=== PATIENT | male | born 1950 ===

== ENCOUNTER 2025-03-06 10:38 | Day surgery (SDC) | payer OTHER ==
[2025-03-02 09:51] VITALS: BP 126/71
[2025-03-02 10:29] LABS: BASO % 0.5 % (0.1-1.2); EOS # 0.06 (0.04-0.54); HEMATOCRIT 44.8 % (40.1-51.0); HEMOGLOBIN 14.3 g/dL (13.7-17.5); LYMPH # 1.38 (1.18-3.74); LYMPH % 23.7 % (19.3-53.1); MEAN CORPUSCULAR HEMOGLOBIN 27.9 pg (25.6-32.2); MONO # 0.45 (0.24-0.82); MONO % 7.7 % (4.7-12.5); NEUT # 3.89 (1.56-6.13); NEUT % 66.9 % (34.0-71.1); PLATELET COUNT 163 K/uL (163-369); RED BLOOD COUNT 5.13 M/uL (4.63-6.08); RED CELL DISTRIBUTION WIDTH 14.5 % (11.6-14.4)
[2025-03-02 10:48] LABS: INR 1.09; PARTIAL THROMBOPLASTIN TIME 25.6 SECONDS (22.0-34.0); PROTHROMBIN TIME 11.8 SECONDS (9.0-11.5)
[~2025-03-06] VITALS: Ht 167.6 cm; Wt 70.3 kg
[~2025-03-06 10:38] MED LIST: DUTASTERIDE-TA1 EACH PO; EZALLOR SPRINKL20 MG PO; FARXIGA10 MG PO; FOSINOPRIL-HCT1 EACH; XARELTO10 MG PO
[2025-03-06] MEDS ORDERED: DEXAMETHASONE SODIUM PHOSPHATE 4 MG/ML VIAL ONE (13:17)
== END 2025-03-06 16:55 | disposition home or self-care (01) ==
LOC: SURH 10:38 → CIR.AMB 10:38 → O/R 10:38 → SURH 14:00 → O/R 16:55 → CIR.AMB 16:55
PROVIDERS: ATTEND Surgery
DX: C73 Malignant neoplasm of thyroid gland (principal); Z53.09 Procedure and treatment not carried out because of other contraindication

== ENCOUNTER 2025-03-19 05:29 | Inpatient (IN) | payer OTHER ==
[~2025-03-19] VITALS: Ht 165.1 cm; Wt 70.3 kg
[2025-03-19] MEDS ORDERED: DEXAMETHASONE SODIUM PHOSPHATE 4 MG/ML VIAL ONE (07:08)
[2025-03-19] MEDS ORDERED: ONDANSETRON HCL 2 MG/ML VIAL IV PRN (09:45)
[2025-03-19] MEDS ORDERED: ENALAPRILAT DIHYDRATE 1.25 MG/ML VIAL IV PRN (09:45)
[2025-03-19 16:50] VITALS: BP 134/68; O2SAT 96
[2025-03-19] MEDS ORDERED: CALCITRIOL 0.5 MCG CAPSULE PO SCH (17:00)
[2025-03-19] MEDS ORDERED: CYCLOBENZAPRINE HCL 5 MG TABLET PO SCH (17:00)
[2025-03-19] MEDS ORDERED: DIPHENHYDRAMINE HCL 75 MG,LIDOCAINE HCL 30 ML,MAG HYDROX/ALUMINUM HYD/SIMETH 30 ML PO SCH (17:00)
[2025-03-19] MEDS ORDERED: TRAMADOL HCL 50 MG TABLET PO SCH (17:00)
[2025-03-19] MEDS ORDERED: ACETAMINOPHEN 500 MG GEL..CAP PO SCH (17:00)
[2025-03-19] MEDS ORDERED: Calcium Carbonate 1 TAB TABLET PO SCH (21:00)
[2025-03-20] VITALS: BP 101/61; O2SAT 96
[2025-03-20] MEDS ORDERED: LEVOTHYROXINE SODIUM 112 MCG TABLET PO SCH (06:00)
[2025-03-20 09:12] VITALS: BP 119/67; O2SAT 94
== END 2025-03-20 10:32 | disposition home or self-care (01) | DRG 627 ==
LOC: CIR.AMB 05:29 → O/R 10:08 → SURG 12:19 → CIR.AMB 14:51 → SURG 03-20 10:32
PROVIDERS: ADMIT Surgery; ATTEND Surgery
PROC: 0GTH0ZZ Resection of Right Thyroid Gland Lobe, Open Approach (ICD-10-PCS; principal; 2025-03-19 10:00)
DX: C73 Malignant neoplasm of thyroid gland (principal)